=== PATIENT | male | born 1935 | race Two or more races ===

== ENCOUNTER 2020-02-11 11:11 | Emergency (ER) | payer MEDICARE, OTHER ==
[2020-02-11 11:16] VITALS: BP 171/95
[2020-02-11] MEDS ORDERED: LIDOCAINE 1% INJ-PF (10 MG/ML) 30 ML SDV INJ ONE (12:14)
[2020-02-11] MEDS ORDERED: DIPH/PERTUSS(ACELL)/TETANUS VAC/PF 0.5 ML SYR (>=10YO) IM ONE (12:15)
--- NOTE | 2020-02-11 13:10 | ER Document Report ---
ED General - General Chief Complaint: Laceration Stated Complaint: FINGER INJURY Time Seen by Provider: 02/11/20 12:04 Primary Care Provider: [facility] [Provider Group] - Follow up as needed TRAVEL OUTSIDE OF THE [place] IN LAST 30 DAYS: No - HPI Notes: Patient is a 84 y/o male who presents with a laceration to his left index finger that occurred just [employer]. Patient states he was sharpening a pair of scissors when it slipped and cut his finger. He denies taking any blood thinners. He is unaware of when his most recent tetanus shot was. He denies any other symptoms or injuries. - Related Data Allergies/Adverse Reactions: antivenin,crotalidae polyvalent imm Adverse Reaction (Unknown, Verified 03/25/16 13:35) Past Medical History - General Information source: Patient - Social History Smoking Status: Unknown if Ever Smoked Family History: Reviewed & Not Pertinent Review of Systems - Review of Systems Constitutional: No symptoms reported EENT: No symptoms reported Cardiovascular: No symptoms reported Respiratory: No symptoms reported Gastrointestinal: No symptoms reported Genitourinary: No symptoms reported Male Genitourinary: No symptoms reported Musculoskeletal: No symptoms reported Skin: See HPI Hematologic/Lymphatic: No symptoms reported Neurological/Psychological: No symptoms reported Physical Exam - Vital signs Vitals: Temp Pulse Resp BP Pulse Ox 97.6 F 70 20 171/95 H 99 02/11/20 11:15 02/11/20 11:15 02/11/20 11:15 02/11/20 11:15 02/11/20 11:15 - Notes Notes: PHYSICAL EXAMINATION: GENERAL: Well-appearing, well-nourished and in no acute distress. HEAD: Atraumatic, normocephalic. EYES: sclera anicteric, conjunctiva are normal. ENT: Moist mucous membranes. NECK: Normal range of motion LUNGS: Normal work of breathing HEART: 2+ radial pulses bilaterally EXTREMITIES: ~3cm linear laceration running horizontally across the palmar aspect of his second DIP on the left hand. Good cap refill, palpable radial pulse on the left side. Full range of motion of the left hand and fingers. Sensation intact. No pitting or edema. No cyanosis. NEUROLOGICAL: No focal neurological deficits. Moves all extremities spontaneously and on command. PSYCH: Normal mood, normal affect. SKIN: Warm, Dry, normal turgor, no rashes or lesions noted. Course - Re-evaluation Re-evalutation: Patient is an 84-year-old male who presents for a laceration to his left index finger. Vital signs are stable within normal limits. On exam, ~3cm linear laceration running horizontally across the palmar aspect of his second DIP on the left hand. Laceration repair performed without complication. Tetanus vaccine given today here in the ED. Patient instructed to return or follow-up with primary care in 9 to 10 days for suture removal. Prescription for Keflex given as a antibiotic prophylactic. Return precautions and follow-up instructions given. Patient understands and is agreeable with plan. - Vital Signs Vital signs: Temp Pulse Resp BP Pulse Ox 97.6 F 70 20 171/95 H 99 02/11/20 11:15 02/11/20 11:15 02/11/20 11:15 02/11/20 11:15 02/11/20 11:15 Procedures - Laceration/Wound Repair Left Distal Finger 2nd digit Wound length (cm): 3 Wound's Depth, Shape: Superficial, Linear Laceration pre-procedure: Sterile PPE Mario handley applied Anesthetic type: 1% Lidocaine Wound explored: Clean Irrigated w/ Saline (mLs): 30 Wound Repaired With: Sutures Suture Size/Type: 4:0, Ethilon Number of Sutures: 6 Post-procedure NV exam normal: Yes Complications: No Notes: The wound is 3 cm in length to the palmar aspect of the left index finger. The wound was copiously irrigated with normal saline and surgical cleanser. The wound was explored for foreign bodies and none were found. The wound was prepped and draped in the normal sterile fashion. The wound was anesthetized using 1% lidocaine. The edges were reapproximated using 4-0 Ethilon. Bleeding was well controlled and the patient tolerated the procedure well. Discharge - Discharge Clinical Impression: Laceration of finger of left hand Qualifiers: Encounter type: initial encounter Finger: index finger Damage to nail status: without damage Foreign body presence: without foreign body Qualified Code(s): S61.211A - Laceration without foreign body of left index finger without damage to nail, initial encounter Condition: Stable Disposition: HOME, SELF-CARE Instructions: Laceration Care ([facility]), Prophylactic Antibiotic ([facility]), Tetanus Immunization Given ([facility]) Additional Instructions: Return to the emergency department or go to urgent care or your primary care provider for suture removal in 9-10 days. Take the antibiotics as prescribed and make sure to take all the pills even if you have no symptoms or notice improvement. Prescriptions: Cephalexin Monohydrate [Keflex 500 mg Capsule] 500 mg PO QID 5 Days #20 capsule Referrals: [facility] [Provider Group] - Follow up as needed
== END 2020-02-11 13:34 | disposition home or self-care (01) ==
LOC: ER 11:11
PROC: 0HQGXZZ Repair Left Hand Skin, External Approach (ICD-10-PCS; principal; 2020-02-11)
DX: S61.211A Laceration without foreign body of left index finger without damage to nail, initial encounter (principal); W27.2XXA Contact with scissors, initial encounter; Z88.8 Allergy status to other drugs, medicaments and biological substances
CPT/HCPCS: 99283; 90471; 90715; 12002; J3490

== ENCOUNTER 2020-02-23 09:14 | Emergency (ER) | payer MEDICARE, OTHER ==
[2020-02-23 09:23] VITALS: BP 170/84
--- NOTE | 2020-02-23 09:36 | ER Document Report ---
HPI - HPI Patient complains to provider of: Suture removal Time Seen by Provider: 02/23/20 09:22 Onset/Duration: Better Pain Level: Denies Context: Patient presents for suture removal to left second finger laceration. 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 Patient states tetanus immunization was updated when he was seen 12 days ago for wound repair. 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 IN LAST 30 DAYS: No - HEENT HEENT: Atraumatic, Normocephalic - NECK Neck: Normal Inspection - RESPIRATORY Respiratory: Breath Sounds Normal, No Respiratory Distress - CARDIOVASCULAR Cardiovascular: Regular Rate, Regular Rhythm - MUSCULOSKELETAL/EXTREMETIES Musculoskeletal/Extremeties: MAEW, FROM - NEURO Level of Consciousness: Awake, Alert, Appropriate Motor/Sensory: No Motor Deficit - DERM Integumentary: Warm, Dry, Laceration - Sutured 2.5 cm laceration to palmar surface of left second finger, 6 intact sutures, wound edges approximated without any surrounding erythema Course - Re-evaluation Re-evalutation: 02/23/20 09:39 Patient encouraged to follow-up with hand surgery for any persistent problems. Sutures will be removed and Steri-Strips will be placed. Pt with full range of motion to finger - Vital Signs Vital signs: Temp Pulse Resp BP Pulse Ox 97.6 F 72 16 170/84 H 98 02/23/20 09:22 02/23/20 09:22 02/23/20 09:22 02/23/20 09:22 02/23/20 09:22 Discharge - Discharge Clinical Impression: Encounter for removal of sutures Condition: Stable Disposition: HOME, SELF-CARE Instructions: Care of Steri-Strip Closure ([facility]), Suture Removal Additional Instructions: Return immediately for any new or worsening symptoms Followup with your primary care provider, call tomorrow to make a followup appointment Follow-up with orthopedic hand specialist for any persistent problems Referrals: MICKY MCCRARY, [ACTIVE STAFF] - Follow up as needed
== END 2020-02-23 10:04 | disposition home or self-care (01) ==
LOC: ER 09:14
DX: S61.211D Laceration without foreign body of left index finger without damage to nail, subsequent encounter (principal); W27.2XXD Contact with scissors, subsequent encounter